=== PATIENT | female | born 1935 | race Hispanic/Latino ===

== ENCOUNTER 2022-05-09 14:58 | Emergency (ER) | payer MEDICARE ==
[2022-05-09 15:36] VITALS: BP 94/26
[2022-05-09 16:32] LABS: HEMATOCRIT 38.6 % (36-48); MEAN CORPUSCULAR HEMOGLOBIN 34.3 pg (27.0-33.0); MEAN CORPUSCULAR HGB CONC 33.2 g/dL (32.0-36.0); MEAN CORPUSCULAR VOLUME 103.5 fL (79-99); PLATELET COUNT (AUTO) 319 K/uL (130-400); RED BLOOD CELL COUNT(AUTO) 3.73 MIL/uL (4.00-5.50); RED CELL DISTRIBUTION WIDTH 14.8 % (11.0-15.5); WHITE BLOOD COUNT (AUTO) 13.8 K/uL (4.8-10.8)
[2022-05-09 16:55] LABS: CREATININE 3.6 mg/dL (0.5-1.5); POTASSIUM 4.4 mmol/L (3.5-5.1)
[2022-05-09 16:59] LABS: ALBUMIN 3.3 g/dL (3.5-5.0); TOTAL PROTEIN, SERUM 7.7 g/dL (6.0-8.3)
[2022-05-09 17:03] LABS: B-TYPE NATRIURETIC PEPTIDE 689 pg/mL (0-100)
[2022-05-09] MEDS ORDERED: SUCR500T PO (17:07)
[2022-05-09] MEDS ORDERED: ATOR10 PO (17:07)
[2022-05-09] MEDS ORDERED: ACET325O5 PO (17:07)
[2022-05-09] MEDS ORDERED: PANT40GR PO (17:07)
[2022-05-09] MEDS ORDERED: AMOX1TAB15 PO (17:07)
[2022-05-09] MEDS ORDERED: FOLI1TAB85 PO (17:07)
[2022-05-09 17:24] LABS: BAND NEUTROPHILS % (MANUAL) 5 % (0-2); LYMPHOCYTES % (MANUAL) 9 % (22-44); MAN.DIFF COMMENT-IMPRESSION MANUAL DIFFERENTIAL; MONOCYTES % (MANUAL) 7 % (2-9); REACTIVE LYMPHOCYTES 1 % (0-0); SEGMENTED NEUTROPHILS % 78 % (40-70)
[2022-05-09 17:30] LABS: PLATELET MORPHOLOGY COMMENT SLIGHTLY DECREASED
== END 2022-05-09 18:23 | disposition home or self-care (01) ==
LOC: EDBD 14:58 → EDH 14:58
DX: R55 Syncope and collapse (principal); R53.1 Weakness; I12.0 Hypertensive chronic kidney disease with stage 5 chronic kidney disease or end stage renal disease; E11.22 Type 2 diabetes mellitus with diabetic chronic kidney disease; E78.00 Pure hypercholesterolemia, unspecified; N18.6 End stage renal disease; Z88.2 Allergy status to sulfonamides; Z88.1 Allergy status to other antibiotic agents; Z99.2 Dependence on renal dialysis
CPT/HCPCS: 36415; 70450; 71045; 80053; 83880; 84484; 85025; 93005